=== PATIENT | female | born 1970 | race Caucasian/White ===

== ENCOUNTER 2017-03-29 17:35 | Emergency (ER) | payer OTHER ==
[~2017-03-29 17:35] MED LIST: DICLOFENAC SODI50 MG PO; FLEXERIL10 MG PO
== END 2017-03-29 21:26 ==
LOC: ER 17:35
DX: J06.9 Acute upper respiratory infection, unspecified (principal); J02.9 Acute pharyngitis, unspecified; R51 Headache; F17.210 Nicotine dependence, cigarettes, uncomplicated; Z88.0 Allergy status to penicillin
CPT/HCPCS: 99282